=== PATIENT | female | born 1965 | race Caucasian/White ===

== ENCOUNTER 2020-12-04 13:11 | Emergency (ER) | payer OTHER, MEDICAID ==
[~2020-12-04] VITALS: Ht 157.4 cm; Wt 68.0 kg
[~2020-12-04 13:11] MED LIST: ADVAIR 100/501 E1 INH; ADVAIR 250/501 EA INH; ALBUTEROL0.09 MG/A2 IH; ALPRAZOLAM0.5 M3 PO; ALPRAZOLAM1 MG PO; ANAPROX DS550 MG PO; CARBAMAZEPINE200 M5 PO; CLARITIN10 MG PO; DEXILANT60 M1 PO; FISH OIL; HYDROCODONE BIT1 T11 PO; HYZAAR 12.5 MG-1 TA1 PO; HYZAAR 12.5 MG-1 TAB PO; IRON325 M1 PO; KEPPRA500 MG PO; LIDEX0.05% T; LINZESS 145 MCG PO; LINZESS145 MC1 PO; LINZESS145 MCG PO; NAPROSYN500 MG PO; NEXIUM40 MG PO; NORCO 325 MG-51 TAB PO; PARAFON FORTE500 MG PO; PLAVIX75 MG PO; PREDNICOT20 MG PO; PREDNISONE10 MG PO; PROAIR HFA0.09 MG/AC INH; PROTONIX40 MG PO; ROBITUSSIN DM120 ML PO; TEGRETOL200 MG PO; TESSALON PERLE100 M1 PO; TRAMADOL HCL50 MG PO; ULTRAM50 MG PO; VICODIN 5/500 505 MG PO; VITAMIN D; VITAMIN D1000 IU PO; Ventolin 02.5 MG/3 M INH; ZITHROMAX Z PA250 MG PO; ZITHROMAX250 MG PO; ZOFRAN ODT4 MG PO; [UNRECOGNIZED DRUG - CODE]
[2020-12-04 13:24] VITALS: BP 160/57
[2020-12-04 14:35] LABS: BASO # 0.1 10*3/uL (0.0-0.1); BASO % 0.8 % (0.0-1.0); EOS # 0.4 10*3/uL (0.0-0.4); EOS % 4.1 % (1.0-4.0); HEMATOCRIT 43.7 % (37.0-47.0); LYMPH # 3.2 10*3/uL (1.3-4.4); LYMPH % 32.5 % (27.0-41.0); MEAN CORPUSCULAR HGB 27.7 pg (27.0-31.0); MEAN CORPUSCULAR HGB CONC 31.1 g/dl (33.0-37.0); MEAN PLATELET VOLUME 10.3 fl (9.6-12.3); MONO # 0.9 10*3/uL (0.1-1.0); MONO % 9.5 % (3.0-9.0); NEUT # 5.2 10*3/uL (2.3-7.9); NEUT % 52.8 % (47.0-73.0); PLATELET COUNT AUTOMATED 316 10*3/uL (130-400); RED BLOOD COUNT 4.91 10*6/uL (4.10-5.10); RED CELL DISTRI WIDTH 14.2 % (0-14.5); WHITE BLOOD COUNT 9.9 10*3/uL (4.8-10.8)
[2020-12-04 14:41] LABS: BILIRUBIN Negative (Negative); BLOOD Negative (Negative); CLARITY Cloudy (Clear); COLOR Yellow (Yellow); GLUCOSE Negative (Negative); KETONE Trace (Negative); LEUKO ESTERASE Trace (Negative); NITRITE Negative (Negative); PH 7.5 (4.5-8.0); SPECIFIC GRAVITY 1.025 (1.001-1.030)
[2020-12-04 14:53] LABS: ALBUMIN 3.5 gm/dl (3.1-4.5); ALKALINE PHOSPHATASE 94 U/L (45-117); BUN 10 mg/dl (7-24); CHLORIDE 107 mmol/L (98-107); CREATININE 0.86 mg/dL (0.55-1.02); LIPASE 69 U/L (73-393); POTASSIUM 3.7 mmol/L (3.5-5.1); SGOT/AST 12 IU/L (3-35); SGPT/ALT 24 U/L (12-78); SODIUM 142 mmol/L (136-145); TOTAL PROTEIN 7.4 gm/dL (6.4-8.2)
[2020-12-04 14:56] LABS: TROPONIN I < 0.015 ng/ml (<0.045)
[2020-12-04 15:17] LABS: BACTERIA 2+; MUCOUS 1+
== END 2020-12-04 16:25 | disposition left against medical advice (07) ==
LOC: ED 13:11
PROVIDERS: Emergency Medicine
DX: R07.89 Other chest pain (principal); K58.9 Irritable bowel syndrome, unspecified; Z98.51 Tubal ligation status; Z90.89 Acquired absence of other organs; Z79.899 Other long term (current) drug therapy; Z88.5 Allergy status to narcotic agent; Z88.1 Allergy status to other antibiotic agents; Z88.8 Allergy status to other drugs, medicaments and biological substances

== ENCOUNTER 2022-03-11 10:49 | Emergency (ER) | payer OTHER ==
[~2022-03-11] VITALS: Ht 157.4 cm; Wt 74.8 kg
== END 2022-03-11 11:52 | disposition home or self-care (01) ==
LOC: ED 10:49
DX: K59.00 Constipation, unspecified (principal); Z88.5 Allergy status to narcotic agent; Z88.2 Allergy status to sulfonamides; Z79.899 Other long term (current) drug therapy; Z90.89 Acquired absence of other organs; Z98.51 Tubal ligation status